=== PATIENT | female | born 1980 | race African-American/Black ===

== ENCOUNTER 2016-10-29 12:51 | Emergency (ER) | payer BC ==
[~2016-10-29] VITALS: Ht 167.6 cm; Wt 100.0 kg
[~2016-10-29 12:51] MED LIST: CANA100T PO; GLUCTAB PO; HYDR12.56 PO; ULTR50TA PO
[2016-10-29 12:55] VITALS: BP 134/83; PULSE 75; RESP 16; TEMP 98.7; O2SAT 99
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
[2016-10-29] MEDS ORDERED: methylPREDNISolone SOD SUCC 125 MG/2 ML VIAL IM ONE (13:15)
[2016-10-29] MEDS ORDERED: diphenhydrAMINE HCL 50 MG/ML VIAL IV PUSH ONE (13:30)
[2016-10-29] MEDS ORDERED: diphenhydrAMINE HCL 50 MG/ML VIAL IM ONE (13:45)
[2016-10-29] MEDS ORDERED: EPIP0.3I IM (14:01)
== END 2016-10-29 15:57 | disposition home or self-care (01) ==
LOC: NEPD 12:51
DX: T78.1XXA Other adverse food reactions, not elsewhere classified, initial encounter (principal); I10 Essential (primary) hypertension; X58.XXXA Exposure to other specified factors, initial encounter
CPT/HCPCS: 96372; 99284; J1200; J2930

== ENCOUNTER 2017-06-11 14:04 | Observation (INO) | payer BC ==
[~2017-06-11] VITALS: Ht 170.2 cm; Wt 118.0 kg
[2017-06-11] VITALS (10 sets, daily range): BP systolic 106–148; BP diastolic 61–96; PULSE 66–84; RESP 16–21; TEMP 98–98.4; O2SAT 97–100
[~2017-06-11 14:04] MED LIST changes: +EPIP0.3I IM
[2017-06-11] MEDS ORDERED: METF500T PO (14:22)
[2017-06-11] MEDS ORDERED: BUME1TAB PO (14:22)
[2017-06-11] MEDS ORDERED: NITROGLYCERIN 0.4 MG SL 25 TABS/BTL SL ONE (14:30)
[2017-06-11] MEDS ORDERED: ASPIRIN 325 MG TAB PO ONE (14:30)
[2017-06-11] MEDS ORDERED: SODIUM CHLORIDE 0.9% FLUSH 10 ML FLUSH IVF PRN (14:30)
[2017-06-11] MEDS ORDERED: ACETAMINOPHEN 325 MG TAB PO ONE (14:45)
[2017-06-11 14:59] LABS: AUTOMATED NEUTROPHIL # 3.7 TH/MM3 (1.8-7.7); BASOPHIL % 0.5 % (0.0-2.0); EOSINOPHIL # 0.3 TH/MM3 (0-0.4); HEMATOCRIT 39.7 % (35.0-46.0); HEMOGLOBIN 13.1 GM/DL (11.6-15.3); LYMPH % 42.7 % (9.0-44.0); LYMPHOCYTE # 3.6 TH/MM3 (1.0-4.8); MEAN CELL VOLUME 81.7 FL (80.0-100.0); MEAN CORPUSCULAR HEMOGLOBIN 27.1 PG (27.0-34.0); MEAN CORPUSCULAR HGB CONC 33.2 % (32.0-36.0); MEAN PLATELET VOLUME 8.2 FL (7.0-11.0); MONO % 8.5 % (0.0-8.0); MONOCYTE # 0.7 TH/MM3 (0-0.9); NEUT % 44.3 % (16.0-70.0); PLATELET COUNT 308 TH/MM3 (150-450); RED BLOOD COUNT 4.85 MIL/MM3 (4.00-5.30); RED CELL DISTRIBUTION WIDTH 14.9 % (11.6-17.2); WHITE BLOOD COUNT 8.3 TH/MM3 (4.0-11.0)
[2017-06-11 15:05] LABS: BICARBONATE 31.2 MEQ/L (21.0-32.0); BLOOD UREA NITROGEN 10 MG/DL (7-18); CALCIUM 8.7 MG/DL (8.5-10.1); CHLORIDE 105 MEQ/L (98-107); CREATININE 0.86 MG/DL (0.50-1.00); GLOMERULAR FILTRATION RATE 89 ML/MIN (>89); GLUCOSE,RANDOM 86 MG/DL (74-106); SODIUM (NA) 140 MEQ/L (136-145)
--- NOTE | 2017-06-11 15:05 | RADRPT ---
EXAM DATE/TIME: 06/11/2017 14:34 [facility] COMPARISON: CHEST SINGLE AP, May 20, 2015, 15:35. INDICATIONS : Chest pain, shortness of breath, and cough. MEDICAL HISTORY : Diabetes mellitus type II. Asthma. SURGICAL HISTORY : None. ENCOUNTER: Initial ACUITY: 1 week PAIN SCORE: 6/10 LOCATION: chest FINDINGS: Single AP view of the chest. Lung volumes are low. The lungs are clear. Cardiac silhouette mildly pro minent. No evidence of pleural effusion or pneumothorax. CONCLUSION: Cardiac silhouette is mildly prominent, may be due to low lung volumes and lordotic posit ioning. No other acute cardiopulmonary disease identified. Juan M Rodriguez MD on June 11, 2017 at 15:01 Board Certified Radiologist. This report was verified electronically.
[2017-06-11 15:11] LABS: TROPONIN I LESS THAN 0.02 NG/ML (0.02-0.05)
[2017-06-11 15:24] LABS: PROTHROMBIN TIME - PATIENT 10.2 SEC (9.8-11.6)
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
[2017-06-11 15:37] LABS: D-DIMER 0.42 MG/L FEU (0.00-0.50)
[2017-06-11] MEDS ORDERED: ONDANSETRON HCL 4 MG/2 ML VIAL IV PUSH ONE (15:45)
[2017-06-11] MEDS ORDERED: MORPHINE SULFATE 2 MG/ML INJ IV PUSH ONE (15:45)
[2017-06-11] MEDS ORDERED: NITROGLYCERIN 0.4 MG SL 25 TABS/BTL SL PRN (17:00)
[2017-06-11] MEDS ORDERED: ACETAMINOPHEN 500 MG CPLT PO PRN (17:00)
[2017-06-11] MEDS ORDERED: ONDANSETRON HCL 4 MG/2 ML VIAL IV PUSH PRN (17:00)
--- NOTE | 2017-06-11 18:22 | HHI.HP ---
HPI Primary Care Physician Elzbieta Galindo D.O. Chief Complaint Chest pain History of Present Illness 37-year-old female with history of type 2 diabetes, GERD, and asthma presents to emergency room for further evaluation of chest pain. Onset one week. Location left anterior chest with radiation to left jaw and left scapula area with intermittent arm tingling. Characterized as a severe ache. Duration 5 minutes. No associated symptoms of nausea, vomiting, dyspnea, or diaphoresis. No known precipitating or relieving factors. Initially felt discomfort was related to indigestion. Endorses one week of flu-like symptoms, continues to have productive cough clear sputum and increased wheezing, however feels as though she is on the mends. Currently she is chest pain-free. Review of Systems General: Recent flulike illness 1-2 weeks. No fatigue, weakness, fever, chills , or change in appetite. HEENT: No LOCKETT, no vision changes, no nasal congestion or drainage, no dysphasia CV: As stated above. No current chest pain or pressure. RESP: History of asthma, follows with [facility]. Current cough accompanied with intermittent wheeze. Increase use of albuterol rescue inhaler has one week. GI: No nausea or vomiting, bowel changes, diarrhea, constipation, pain, distention, melena, blood in the stool. No change in appetite, no unintentional weight gain or weight loss : No dysuria, urgency, frequency EXT: No lower leg edema, no paraesthesias MS: No discomfort or change in ROM NEURO: No change in memory, dizziness, difficulty with balance, LOC, motor/ sensory deficits PSYCH: No anxiety, depression, suicidal ideation SKIN: No rashes, no concerning lesions Past Family Social History Allergies: Coded Allergies: Pork/Porcine Containing Products (Unverified Allergy, Severe, Itching, ) cough, throat tightness milk (Unverified Allergy, Severe, Itching, 12/28/16) cough, throat tightness lisinopril (Unverified Allergy, Unknown, 12/28/16) Past Medical History Type 2 diabetes, GERD, asthma, hyperlipidemia Past Surgical History Appendectomy, cholecystectomy, tonsillectomy Reported Medications Reported Meds & Active Scripts Active Epipen 2-Truman Inj (Epinephrine) 0.3 Mg/0.3 Ml Pfpen 0.3 Mg IM ONCE PRN Reported Bumetanide 1 Mg Tab 1 Mg PO DAILY Metformin (Metformin HCl) 500 Mg Tab 500 Mg PO DAILY With a meal Active Ordered Medications Current Medications Medications (Trade) Dose Ordered Sig/Seble Route Start Time Stop Time Status Last Admin (NS Flush) 2 ml UNSCH PRN IVF 06/11/17 14:30 (NS Flush) 2 ml BID IV FLUSH 06/11/17 21:00 (Tylenol) 500 mg Q4H PRN PO 06/11/17 17:00 (Zofran Inj) 4 mg Q6H PRN IV PUSH 06/11/17 17:00 (Nitrostat Sl) 0.4 mg Q5M PRN SL 06/11/17 17:00 (Aspirin) 325 mg DAILY PO 06/12/17 09:00 Family History Noncontributory for early onset cardiovascular disease Social History Known diabetes and hypertension. No known hyperlipidemia. Lifelong nonsmoker. Denies any alcohol use. . Works at local [employer]. 2 young children. Past cardiac testing None Physical Exam Vital Signs Vital Signs Date Time Temp Pulse Resp B/P (MAP) Pulse Ox O2 Delivery O2 Flow Rate FiO2 06/11/17 17:38 98.0 72 18 128/79 (95) 100 06/11/17 17:34 06/11/17 16:25 68 21 144/96 (112) 98 06/11/17 14:54 66 18 117/81 (93) 100 06/11/17 14:40 72 16 106/61 (76) 99 Room Air 06/11/17 14:21 69 17 115/72 (86) 99 06/11/17 14:07 98.4 84 18 148/84 (105) 98 Physical Exam GENERAL: Alert WN, WD, NAD, pleasant, obese female HEAD: NC, AT CV: RRR, without murmur, rub, gallop, no JVD, S1-S2 no S3-S4. RESP: Slight expiratory wheeze upper lobes, otherwise clear without rhonchi. symmetrical chest rise, nonlabored, able to speak in full sentences ABD: Soft, NT, ND, no masses, positive bowel tones EXT: Pulses +24, no dependent edema MS: Normal tone 4 extremities, nontender, no obvious deformities, full range of motion NEURO: CN II through CN XII grossly intact, motor strength 5/5 PSYCH: A+O 3, pleasant affect, appropriate speech, mood, insight and judgment SKIN: Normal turgor, normal texture, no lesions, no rashes, even hair distribution Laboratory Laboratory Tests Test 06/11/17 14:25 White Blood Count 8.3 Red Blood Count 4.85 Hemoglobin 13.1 Hematocrit 39.7 Mean Corpuscular Volume 81.7 Mean Corpuscular Hemoglobin 27.1 Mean Corpuscular Hemoglobin Concent 33.2 Red Cell Distribution Width 14.9 Platelet Count 308 Mean Platelet Volume 8.2 Neutrophils (%) (Auto) 44.3 Lymphocytes (%) (Auto) 42.7 Monocytes (%) (Auto) 8.5 Eosinophils (%) (Auto) 4.0 Basophils (%) (Auto) 0.5 Neutrophils # (Auto) 3.7 Lymphocytes # (Auto) 3.6 Monocytes # (Auto) 0.7 Eosinophils # (Auto) 0.3 Basophils # (Auto) 0.0 CBC Comment DIFF FINAL Differential Comment Prothrombin Time 10.2 Prothromb Time International Ratio 1.0 Activated Partial Thromboplast Time 27.1 D-Dimer Quantitative (PE/DVT) 0.42 Blood Urea Nitrogen 10 Creatinine 0.86 Random Glucose 86 Calcium Level 8.7 Magnesium Level 2.0 Sodium Level 140 Potassium Level 3.9 Chloride Level 105 Carbon Dioxide Level 31.2 Anion Gap 4 Estimat Glomerular Filtration Rate 89 Total Creatine Kinase 176 Creatine Kinase MB 1.2 Troponin I LESS THAN 0.02 B-Type Natriuretic Peptide 7 Result Diagram: 06/11/17 1425 06/11/17 1425 Imaging Last 48 hours Impressions Chest X-Ray 06/11/17 1422 Signed Impressions: Service Date/Time: Sunday, June 11, 2017 14:34 - CONCLUSION: Cardiac silhouette is mildly prominent, may be due to low lung volumes and lordotic positioning. No other acute cardiopulmonary disease identified. Juan M Rodriguez MD Course EKG Normal sinus rhythm no ST segment changes Caprini VTE Risk Assessment Caprini VTE Risk Assessment: No/Low Risk (score <= 1) Caprini Risk Assessment Model Point Value = 1 Point Value = 2 Point Value = 3 Point Value = 5 Age 41-60 Minor surgery BMI > 25 kg/m2 Swollen legs Varicose veins or History of unexplained or recurrent spontaneous Oral contraceptives or hormone replacement Sepsis (< 1 month) Serious lung disease, including pneumonia (< 1 month) Abnormal pulmonary function Acute myocardial infarction Congestive heart failure (< 1 month) History of inflammatory bowel disease Medical patient at bed rest Age 61-74 Arthroscopic surgery Major open surgery (> 45 min) Laparoscopic surgery (> 45 min) Malignancy Confined to bed (> 72 hours) Immobilizing plaster cast Central venous access Age >= 75 History of VTE Family history of VTE Factor V Leiden Prothrombin [id number] Lupus anticoagulant Anticardiolipin antibodies Elevated serum homocysteine Heparin-induced thrombocytopenia Other congenital or acquired thrombophilia Stroke (< 1 month) Elective arthroplasty Hip, pelvis, or leg fracture Acute spinal cord injury (< 1 month) Prophylaxis Regimen Total Risk Factor Score Risk Level Prophylaxis Regimen 0-1 Low Early ambulation 2 Moderate Order ONE of the following: *Sequential Compression Device (SCD) *Heparin 5000 units SQ BID 3-4 Higher Order ONE of the following medications: *Heparin 5000 units SQ TID *Enoxaparin/Lovenox 40 mg SQ daily (WT < 150 kg, CrCl > 30 mL/min) *Enoxaparin/Lovenox 30 mg SQ daily (WT < 150 kg, CrCl > 10-29 mL/min) *Enoxaparin/Lovenox 30 mg SQ BID (WT < 150 kg, CrCl > 30 mL/min) AND/OR *Sequential Compression Device (SCD) 5 or more Highest Order ONE of the following medications: *Heparin 5000 units SQ TID (Preferred with Epidurals) *Enoxaparin/Lovenox 40 mg SQ daily (WT < 150 kg, CrCl > 30 mL/min) *Enoxaparin/Lovenox 30 mg SQ daily (WT < 150 kg, CrCl > 10-29 mL/min) *Enoxaparin/Lovenox 30 mg SQ BID (WT < 150 kg, CrCl > 30 mL/min) AND *Sequential Compression Device (SCD) Assessment and Plan Assessment and Plan #1 Atypical chest pain-admitted chest pain center. Rule out with 3 sets of EKGs , cardiac enzymes, and monitor overnight. Will be seen and evaluated by chest pain center clinical resource manager in a.m. Further disposition to follow. #2 Asthma-RT Q6H and Q2H prn #3 Type 2 diabetes-education provided on importance of tight blood glucose control #4 History of hypertension-continue Bumex, importance of tight blood pressure control discussed in length Gabriela Starks Jun 11, 2017 18:22
[2017-06-11] MEDS ORDERED: RESP: ALBUTEROL 2.5 MG/3 ML NEB (PRN) NEB (19:00)
[2017-06-11] MEDS ORDERED: LORATADINE 10 MG TAB PO SCH (19:00)
[2017-06-11] MEDS ORDERED: PILL SPLITTER OTHER PRN (19:00)
[2017-06-11 19:03] LABS: TROPONIN I LESS THAN 0.02 NG/ML (0.02-0.05)
[2017-06-11] MEDS: RESP: ALBUTEROL 2.5 MG/3 ML NEB (SCH) NEB (19:53)
[2017-06-11] MEDS ORDERED: guaiFENesin E.R. 600 MG TAB PO SCH (21:00)
[2017-06-11] MEDS ORDERED: SODIUM CHLORIDE 0.9% FLUSH 10 ML FLUSH IV FLUSH SCH (21:00)
[2017-06-11 23:01] LABS: TROPONIN I LESS THAN 0.02 NG/ML (0.02-0.05)
[2017-06-12] VITALS (7 sets, daily range): BP systolic 101–122; BP diastolic 67–76; PULSE 65–96; RESP 18; TEMP 97.4–98.2; O2SAT 96–98
[2017-06-12] MEDS: RESP: ALBUTEROL 2.5 MG/3 ML NEB (SCH) NEB ×2 (02:53→09:47)
[2017-06-12] MEDS ORDERED: ASPIRIN 325 MG TAB PO SCH (09:00)
[2017-06-12] MEDS ORDERED: PNEUMOCOCCAL POLYVALENT INJ 25 MCG/0.5 ML SYR IM ONE (10:00)
--- NOTE | 2017-06-12 10:07 | HHI.DCPOC ---
Discharge Care Plan Diagnosis: (1) Atypical chest pain (2) Viral syndrome (3) History of asthma Goals to Promote Your Health * To prevent worsening of your condition and complications * To maintain your health at the optimal level Directions to Meet Your Goals Take your medications as prescribed Follow your dietary instruction Follow activity as directed Keep your appointments as scheduled Take your immunizations and boosters as scheduled If your symptoms worsen call your PCP, if no PCP go to Urgent Care Center or Emergency Room Smoking is Dangerous to Your Health. Avoid second hand smoke Call the 24-hour hour crisis hotline for domestic abuse at Gabriela Starks Jun 12, 2017 10:07
--- NOTE | 2017-06-12 10:09 | HHI.DCPOC ---
Discharge Care Plan Diagnosis: (1) Bronchitis Goals to Promote Your Health * To prevent worsening of your condition and complications * To maintain your health at the optimal level Directions to Meet Your Goals Take your medications as prescribed Follow your dietary instruction Follow activity as directed Keep your appointments as scheduled Take your immunizations and boosters as scheduled If your symptoms worsen call your PCP, if no PCP go to Urgent Care Center or Emergency Room Smoking is Dangerous to Your Health. Avoid second hand smoke Call the 24-hour hour crisis hotline for domestic abuse at Gabriela Starks Jun 12, 2017 10:09
[2017-06-12] MEDS ORDERED: ZITHTAB PO (10:10)
--- NOTE | 2017-06-12 10:15 | RADRPT ---
EXAM DATE/TIME: 06/12/2017 09:52 [place] COMPARISON: CHEST SINGLE AP, June 11, 2017, 14:34. INDICATIONS : Short of breath MEDICAL HISTORY : Diabetes mellitus type II. Asthma SURGICAL HISTORY : None. ENCOUNTER: Subsequent ACUITY: 1 week PAIN SCORE: 0/10 LOCATION: Bilateral chest FINDINGS: A single view of the chest demonstrates the lungs to be symmetrically aerated without evidence of mas s, infiltrate or effusion. The cardiomediastinal contours are unremarkable. Osseous structures are intact. CONCLUSION: Normal examination. Tran Medina MD on June 12, 2017 at 10:13 Board Certified Radiologist. This report was verified electronically.
[2017-06-12] MEDS ORDERED: MEDR4PAK PO (10:16)
--- NOTE | 2017-06-12 10:27 | PD.CARD.PN ---
Subjective Subjective Remarks 37 YO morbidly obese black lady with recent episode of flu, temp over 102, cough with yellow-green and blood tinged sputum now CO chest pain. Also asthmatic followed at [facility]. CP is left sided pressure like with sharp aching at times. Usually lasts about 5 minutes. She had a stress test about a year ago which was "not good" and resulted in a CATH (she thinks by Dr. Moore at [facility]) which was reported as "no blockage". She is diabetic, hypertensive and also suffers GERD. She has not received antibiotics for above bronchitis. Objective Medications Current Medications Medications (Trade) Dose Ordered Sig/Seble Route Start Time Stop Time Status Last Admin (NS Flush) 2 ml UNSCH PRN IVF 06/11/17 14:30 (NS Flush) 2 ml BID IV FLUSH 06/11/17 21:00 06/11/17 21:24 (Tylenol) 500 mg Q4H PRN PO 06/11/17 17:00 (Zofran Inj) 4 mg Q6H PRN IV PUSH 06/11/17 17:00 (Nitrostat Sl) 0.4 mg Q5M PRN SL 06/11/17 17:00 06/12/17 00:59 (Aspirin) 325 mg DAILY PO 06/12/17 09:00 (Albuterol Neb) 2.5 mg Q6HR NEB NEB 06/11/17 19:00 06/12/17 02:53 (Albuterol Neb) 2.5 mg Q2HR NEB PRN NEB 06/11/17 19:00 (Mucinex Er) 600 mg BID PO 06/11/17 21:00 06/11/17 21:24 (Claritin) 5 mg DAILY PO 06/11/17 19:00 (Pill Splitter) 1 ea UNSCH PRN OTHER 06/11/17 19:00 Vital Signs / I&O Vital Signs Date Time Temp Pulse Resp B/P (MAP) Pulse Ox O2 Delivery O2 Flow Rate FiO2 06/12/17 09:52 98 21 06/12/17 07:24 97.4 83 18 107/70 (82) 96 06/12/17 04:18 97.9 69 18 122/76 (91) 98 06/12/17 04:00 96 06/12/17 00:09 98.2 65 18 119/75 (90) 97 06/12/17 00:00 67 06/11/17 21:15 98.1 72 17 121/66 (84) 100 06/11/17 20:00 73 06/11/17 19:54 97 21 06/11/17 18:30 69 06/11/17 17:38 98.0 72 18 128/79 (95) 100 06/11/17 17:34 06/11/17 16:25 68 21 144/96 (112) 98 06/11/17 14:54 66 18 117/81 (93) 100 06/11/17 14:40 72 16 106/61 (76) 99 Room Air 06/11/17 14:21 69 17 115/72 (86) 99 06/11/17 14:07 98.4 84 18 148/84 (105) 98 I/O 06/11/17 06/11/17 06/11/17 06/12/17 06/12/17 06/12/17 07:00 15:00 23:00 07:00 15:00 23:00 Intake Total 720 ml Balance 720 ml Intake Oral 720 ml # Voids 1 Physical Exam Obese (weight reported as about 260) probably sl more Chest sounds are decreased but no RWR but does have wet cough and some green sputum in evidence CV RSR with no GRM Ext No CCE CXR poor inspiration and repeat with full inspiration ordered Laboratory Laboratory Tests Test 06/11/17 14:25 06/11/17 18:00 06/11/17 21:15 White Blood Count 8.3 TH/MM3 Red Blood Count 4.85 MIL/MM3 Hemoglobin 13.1 GM/DL Hematocrit 39.7 % Mean Corpuscular Volume 81.7 FL Mean Corpuscular Hemoglobin 27.1 PG Mean Corpuscular Hemoglobin Concent 33.2 % Red Cell Distribution Width 14.9 % Platelet Count 308 TH/MM3 Mean Platelet Volume 8.2 FL Neutrophils (%) (Auto) 44.3 % Lymphocytes (%) (Auto) 42.7 % Monocytes (%) (Auto) 8.5 % Eosinophils (%) (Auto) 4.0 % Basophils (%) (Auto) 0.5 % Neutrophils # (Auto) 3.7 TH/MM3 Lymphocytes # (Auto) 3.6 TH/MM3 Monocytes # (Auto) 0.7 TH/MM3 Eosinophils # (Auto) 0.3 TH/MM3 Basophils # (Auto) 0.0 TH/MM3 CBC Comment DIFF FINAL Differential Comment Prothrombin Time 10.2 SEC Prothromb Time International Ratio 1.0 RATIO Activated Partial Thromboplast Time 27.1 SEC D-Dimer Quantitative (PE/DVT) 0.42 MG/L FEU Blood Urea Nitrogen 10 MG/DL Creatinine 0.86 MG/DL Random Glucose 86 MG/DL Calcium Level 8.7 MG/DL Magnesium Level 2.0 MG/DL Sodium Level 140 MEQ/L Potassium Level 3.9 MEQ/L Chloride Level 105 MEQ/L Carbon Dioxide Level 31.2 MEQ/L Anion Gap 4 MEQ/L Estimat Glomerular Filtration Rate 89 ML/MIN Total Creatine Kinase 176 U/L 141 U/L 143 U/L Creatine Kinase MB 1.2 NG/ML 0.8 NG/ML 0.8 NG/ML Troponin I LESS THAN 0.02 NG/ML LESS THAN 0.02 NG/ML LESS THAN 0.02 NG/ML B-Type Natriuretic Peptide 7 PG/ML Imaging Last 24 hours Impressions Chest X-Ray 06/11/17 1422 Signed Impressions: Service Date/Time: Sunday, June 11, 2017 14:34 - CONCLUSION: Cardiac silhouette is mildly prominent, may be due to low lung volumes and lordotic positioning. No other acute cardiopulmonary disease identified. Juan M Rodriguez MD Assessment and Plan Problem List: (1) Viral syndrome ICD Codes: B34.9 - Viral infection, unspecified Status: Acute (2) History of asthma ICD Codes: Z87.09 - Personal history of other diseases of the respiratory system Status: Acute (3) Atypical chest pain ICD Codes: R07.89 - Other chest pain Status: Acute (4) DM (diabetes mellitus) ICD Codes: E11.9 - DM (diabetes mellitus) Status: Chronic (5) Hypertension ICD Codes: I10 - Hypertension Status: Chronic (6) GERD (gastroesophageal reflux disease) ICD Codes: K21.9 - GERD (gastroesophageal reflux disease) Status: Chronic (7) Bronchitis ICD Codes: J40 - Bronchitis Status: Acute Nico Reich MD Jun 12, 2017 10:27
[2017-06-12 10:51] LABS: HEMOGLOBIN A1C 6.3 % (4.3-6.0)
--- NOTE | 2017-06-12 11:00 | HHI.DS ---
Discharge Summary Admission Date Jun 11, 2017 at 15:45 Discharge Date: Jun 12, 2017 Admitting Diagnosis chest pain, r/o ACS Brief History 37 yaer female with recent flu like symptoms for nearly 2 weeks presented to ER for further evaluation of chest pain. Admitted to chest pain center. Ruled out with 3 sets of ekgs and cardiac enzymes. Seen and evaluated by Dr. Nico Reich. Chest discomfort atypical and patient reported normal cardiac catheterization one year ago, completed by Dr. Tello. No further cardiac testing warranted. Discharge home with antibiotics and steroids, reported purulent drainage and low grade fever greater than 10 days. First chest xray suggested mild cardiomegaly, therefore a repeat chest xray ordered before discharge. Instructed to follow up with PCP for possible outpatient echocardiogram. CBC/BMP: 06/11/17 1425 06/11/17 1425 Significant Findings Laboratory Tests Test 06/11/17 14:25 06/11/17 18:00 06/11/17 21:15 Monocytes (%) (Auto) 8.5 % (0.0-8.0) Anion Gap 4 MEQ/L (5-15) Troponin I LESS THAN 0.02 NG/ML LESS THAN 0.02 NG/ML LESS THAN 0.02 NG/ML Imaging Last 48 hours Impressions Chest X-Ray 06/12/17 0000 Signed Impressions: Service Date/Time: Monday, June 12, 2017 09:52 - CONCLUSION: Normal examination. Tran Medina MD Chest X-Ray 06/11/17 1422 Signed Impressions: Service Date/Time: Sunday, June 11, 2017 14:34 - CONCLUSION: Cardiac silhouette is mildly prominent, may be due to low lung volumes and lordotic positioning. No other acute cardiopulmonary disease identified. Juan M Rodriguez MD Pt Condition on Discharge: Good Discharge Disposition: Discharge Home Discharge Instructions DIET: Follow Instructions for: Heart Healthy Diet Activities you can perform: Regular-No Restrictions Gabriela Starks Jun 12, 2017 11:00
--- NOTE | 2017-06-12 12:09 | EKG ---
Date Performed: 06/12/2017 Time Performed: 00:06:56 PTAGE: 37 years EKG: Sinus rhythm NORMAL ECG NO CHANGE PREVIOUS TRACING : 06/11/2017 21.26 DOCTOR: Nico Reich Interpretating Date/Time 06/12/2017 12:06:04
--- NOTE | 2017-06-12 12:09 | EKG ---
Date Performed: 06/11/2017 Time Performed: 21:26:07 PTAGE: 37 years EKG: Sinus rhythm MINIMAL VOLTAGE CRITERIA FOR LVH, CONSIDER NORMAL VARIANT BORDERLINE ECG NO CHANGE PREVIOUS TRACING : 06/11/2017 14.22 DOCTOR: Nico Reich Interpretating Date/Time 06/12/2017 12:06:24
--- NOTE | 2017-06-12 12:11 | EKG ---
Date Performed: 06/11/2017 Time Performed: 14:22:27 PTAGE: 37 years EKG: Sinus rhythm NORMAL ECG INTERPRETATION BASED ON A DEFAULT AGE OF 39 YEARS NO CHANGE PREVIOUS TRACING : 05/20/2015 15.06 DOCTOR: Nico Reich Interpretating Date/Time 06/12/2017 12:08:29
== END 2017-06-12 14:47 | disposition home or self-care (01) ==
LOC: NEPE 14:04 → NEDA 15:45 → NEPHCDU 19:52
PROVIDERS: ADMIT Internal Medicine Cardiovascular Disease; ATTEND Internal Medicine Cardiovascular Disease
DX: B34.9 Viral infection, unspecified (principal); R07.89 Other chest pain; E11.9 Type 2 diabetes mellitus without complications; I10 Essential (primary) hypertension; E78.5 Hyperlipidemia, unspecified; J40 Bronchitis, not specified as acute or chronic; R94.31 Abnormal electrocardiogram [ECG] [EKG]; J45.909 Unspecified asthma, uncomplicated; E66.01 Morbid (severe) obesity due to excess calories; K21.9 Gastro-esophageal reflux disease without esophagitis; Z79.84 Long term (current) use of oral hypoglycemic drugs; Z82.49 Family history of ischemic heart disease and other diseases of the circulatory system; Z83.3 Family history of diabetes mellitus; Z88.8 Allergy status to other drugs, medicaments and biological substances; Z68.41 Body mass index [BMI] 40.0-44.9, adult
CPT/HCPCS: 71045; 80048; 82550; 82552; 83036; 83735; 83880; 84484; 85025; 85379; 85610; 85730; 93005; 94640; 94664; 96374; 99285; G0378; J2270; J2405; J7613